=== PATIENT | female | born 1960 | race Caucasian/White ===

== ENCOUNTER 2017-08-19 19:08 | Emergency (ER) | payer BC ==
[~2017-08-19] VITALS: Ht 170.2 cm; Wt 65.8 kg
[2017-08-19 19:08] VITALS: BP_SYST 131
[~2017-08-19 19:08] MED LIST: ALPR0.2583 PO; BIRTH CONTROL; ESOM40CA PO
[2017-08-19 21:58] VITALS: BP_SYST 128
== END 2017-08-19 20:05 | disposition home or self-care (01) ==
LOC: SED 19:08
DX: M50.30 Other cervical disc degeneration, unspecified cervical region (principal); M51.36 Other intervertebral disc degeneration, lumbar region; Z88.2 Allergy status to sulfonamides; Z79.899 Other long term (current) drug therapy; Z90.49 Acquired absence of other specified parts of digestive tract; Z90.710 Acquired absence of both cervix and uterus
CPT/HCPCS: 70450-TC; 72125-TC; 72131; 99284